=== PATIENT | female | born 1950 | race Hispanic/Latino ===

== ENCOUNTER 2022-03-12 10:11 | Emergency (ER) | payer OTHER ==
[2022-03-12 11:43] LABS: Urine Blood 2+ (Negative); Urine Glucose Negative (Negative); Urine Protein Negative (Negative); Urine Specific Gravity 1.015 (1.005-1.030)
[2022-03-12 12:18] LABS: Urine Bacteria None Seen /HPF (<20)
--- NOTE | 2022-03-12 12:39 | RAD REPORT ---
EXAM DESCRIPTION: RAD - Sacrum And Coccyx - 03/12/2022 12:20 pm CLINICAL HISTORY: PAIN COMPARISON: No comparisons FINDINGS/IMPRESSION: No acute fracture. No malalignment. Portions of the sacrum and coccyx are obscu red by bowel contents on the frontal view. If persistent clinical concern, could consider CT.
[2022-03-12] MEDS ORDERED: ACETAMINOPHEN 325 MG TABLET ONE (12:42)
--- NOTE | 2022-03-12 13:01 | EDPHYS ---
Physician Documentation [facility] Name: Yenny Rodriguez Age: 71 yrs Sex: Female : 1950 Arrival Date: 03/12/2022 Time: 10:13 Bed 11 Private MD: ED Physician Marely Booth HPI: 03/12 11:00 This 71 yrs old Female presents to ER via Ambulatory with complaints of Coccyx cp Pain. 11:00 The patient presents with pain that is acute, and tenderness. The symptoms are located cp in the coccyx area. 11:00 The pain does not radiate. The problem was sustained started after sitting on "seat cp belt". Onset: The symptoms/episode began/occurred today. Modifying factors: the patient symptoms are aggravated by sitting. Associated signs and symptoms: The patient has no apparent associated signs or symptoms. Severity of symptoms: in the emergency department the symptoms are unchanged, despite home interventions. Historical: - Allergies: 19:37 No Known Allergies; iw - Immunization history:: Adult Immunizations unknown. - Social history:: Smoking status: unknown. ROS: 11:05 Constitutional: Negative for body aches, chills, fever, poor PO intake. cp 11:05 Eyes: Negative for injury, pain, redness, and discharge. cp 11:05 Neck: Negative for pain with movement, pain at rest, stiffness. 11:05 Respiratory: Negative for cough, shortness of breath, wheezing. 11:05 Abdomen/GI: Negative for abdominal pain, nausea, vomiting, and diarrhea. 11:05 Back: Positive for pain at rest, of the sacrum. 11:05 : Negative for urinary symptoms, flank pain. 11:05 Skin: Negative for rash. 11:05 Neuro: Negative for headache, numbness, weakness. 11:05 All other systems are negative. Exam: 11:10 Constitutional: The patient appears in no acute distress, alert, awake, comfortable, cp non-toxic, well developed, well nourished. 11:10 Head/Face: Normocephalic, atraumatic. cp 11:10 Chest/axilla: Inspection: normal. 11:10 Cardiovascular: Rate: normal. 11:10 Respiratory: the patient does not display signs of respiratory distress, Respirations: normal, no use of accessory muscles, no retractions, labored breathing, is not present. 11:10 Abdomen/GI: Inspection: abdomen appears normal, Palpation: abdomen is soft and non-tender, in all quadrants. 11:10 Back: pain, that is mild, of the sacrum, ROM is normal, vertebral tenderness, is appreciated at sacrum and coccyx. 11:10 Skin: abscess, not appreciated, cellulitis, is not appreciated, no rash present. 11:10 Neuro: Motor: moves all fours, strength is normal, Sensation: is normal, Gait: is steady, at a normal pace, without difficulty. Vital Signs: 13:37 BP 135 / 84; Pulse 78; Resp 16; Temp 98.0; Pulse Ox 100% on R/A; iw MDM: 10:59 Patient medically screened. cp 13:00 Data reviewed: vital signs, nurses notes, radiologic studies, plain films. cp 13:00 Differential diagnosis: fracture, contusion, pilonidal cyst. Test interpretation: by ED cp physician or midlevel provider: plain radiologic studies. Counseling: I had a detailed discussion with the patient and/or guardian regarding: the historical points, exam findings, and any diagnostic results supporting the discharge/admit diagnosis, radiology results, to return to the emergency department if symptoms worsen or persist or if there are any questions or concerns that arise at home. Response to treatment: the patient's symptoms have mildly improved after treatment, and as a result, I will discharge patient. 03/12 10:55 Order name: Urine Microscopic Only; Complete Time: 12:45 cp 03/12 12:45 Interpretation: Normal except: URBC 5-10. 03/12 11:43 Order name: Urine Dipstick-Ancillary; Complete Time: 12:45 EDMS 03/12 12:45 Interpretation: Normal except: UBLD 2+. 03/12 10:55 Order name: XRAY Sacrum And Coccyx; Complete Time: 12:45 cp 03/12 12:45 Interpretation: Report reviewed. 03/12 10:55 Order name: Urine Dipstick-Ancillary (obtain specimen); Complete Time: 11:43 cp Administered Medications: 12:40 Drug: Tylenol 650 mg Route: PO; iw 13:00 Follow up: Response: No adverse reaction iw Disposition Summary: 03/12/22 13:00 Discharge Ordered Location: Home cp Problem: new cp Symptoms: have improved cp Condition: Stable cp Diagnosis - Low back pain cp Followup: cp - With: Private Physician - When: 2 - 3 days - Reason: Recheck today's complaints Discharge Instructions: - Discharge Summary Sheet cp - Acute Back Pain, Adult cp - Back Exercises cp Forms: - Medication Reconciliation Form cp - Thank You Letter cp - Antibiotic Education cp - Prescription Opioid Use cp Prescriptions: - Lidoderm 5 % Topical adhesive patch,medicated - apply 1 patch by TOPICAL route once daily; 10 patch; Refills: 0, Product cp Selection Permitted - Diclofenac Sodium 75 mg Oral Tablet Sustained Release - take 1 tablet by ORAL route 2 times per day; 30 tablet; Refills: 0, Product cp Selection Permitted Signatures: Dispatcher [employer] Yenny Hopkins RN RN Yandel Xiong PA PA cp
--- NOTE | 2022-03-12 13:01 | ER ---
Nurse's Notes [facility] Name: Yenny Rodriguez Age: 71 yrs Sex: Female : 1950 Arrival Date: 03/12/2022 Time: 10:13 Bed 11 Private MD: Diagnosis: Low back pain Presentation: 03/12 10:57 Chief complaint: Patient states: low back pain , is worried there might be a fracture. iw Coronavirus screen: At this time, the client does not indicate any symptoms associated with coronavirus-19. 10:57 Method Of Arrival: Ambulatory iw 10:57 Acuity: SG 4 iw 11:00 Ebola Screen: Patient negative for fever greater than or equal to 101.5 degrees iw Fahrenheit, and additional compatible Ebola Virus Disease symptoms Patient denies exposure to infectious person. Patient denies travel to an Ebola-affected area in the 21 days before illness onset. No symptoms or risks identified at this time. Initial Sepsis Screen: Does the patient meet any 2 criteria? No. Patient's initial sepsis screen is negative. Does the patient have a suspected source of infection? No. Patient's initial sepsis screen is negative. Risk Assessment: Do you want to hurt yourself or someone else? Patient reports no desire to harm self or others. Onset of symptoms was March 12, 2022. Triage Assessment: 11:00 General: Appears in no apparent distress. Behavior is calm. iw Historical: - Allergies: 19:37 No Known Allergies; iw - Immunization history:: Adult Immunizations unknown. - Social history:: Smoking status: unknown. Screenin:00 Abuse screen: Denies threats or abuse. Denies injuries from another. Nutritional iw screening: No deficits noted. Tuberculosis screening: No symptoms or risk factors identified. Fall Risk Fall in past 12 months (25 points). Assessment: 11:00 General: Appears in no apparent distress. Behavior is calm, cooperative. Pain: iw Complains of pain in back and buttocks. Neuro: Level of Consciousness is awake, alert, obeys commands, Oriented to person, place, time, situation, Moves all extremities. Full function. Vital Signs: 13:37 BP 135 / 84; Pulse 78; Resp 16; Temp 98.0; Pulse Ox 100% on R/A; iw ED Course: 10:13 Patient arrived in ED. as 10:54 Page, Yandel, PA is PHCP. cp 10:54 Marely Booth MD is Attending Physician. cp 10:57 Triage completed. iw 10:58 Yenny Euceda, RN is Primary Nurse. iw 11:00 Arm band placed on. iw 11:43 Urine Microscopic Only Sent. kc6 12:21 X-ray completed. Patient tolerated procedure well. Patient moved back from radiology. 1 12:22 XRAY Sacrum And Coccyx In Process Unspecified. EDMS 13:00 No provider procedures requiring assistance completed. Patient did not have IV access iw during this emergency room visit. Administered Medications: 12:40 Drug: Tylenol 650 mg Route: PO; iw 13:00 Follow up: Response: No adverse reaction iw Outcome: 13:00 Discharge ordered by MD. cp 13:35 Discharged to home ambulatory, with family. iw 13:35 Condition: good 13:35 Discharge instructions given to patient, Instructed on discharge instructions, follow up and referral plans. Demonstrated understanding of instructions, follow-up care. 13:37 Patient left the ED. iw Signatures: Dispatcher [employer] EDMS Luz Marina Vyas 1 Josee Urbano Irene, RN RN iw Yandel Yost PA PA cp Tammy Sagastume kc6
[2022-03-12 18:39] VITALS: BP 135/84; TEMP 98; O2SAT 100
== END 2022-03-12 13:37 | disposition home or self-care (01) ==
LOC: ER 10:11
DX: M54.50 Low back pain, unspecified (principal)
CPT/HCPCS: 72220; 81003; 81015; 99283

== ENCOUNTER 2024-05-11 20:02 | Emergency (ER) | payer SELFPAY ==
--- OUTSIDE RECORDS SUMMARY | 2024-05-11 20:04 | XMS REPORT | Continuity of Care Document ---
Author Name Unknown Address [address] [facility] [address] [place] [address] [facility] thconnect Address [address] [facility] [place] [address] Care Team Providers Care Aircraft Navigator Name Role Phone PCP, PATIENT DOES NOT HAVE A Primary Care Physic harrison Unavailable Aliyah Wyatt Attending Clinician ALIYAH UPTON Attending Clinician Unavailable Doctor Unassigned, [place] Attending Clinician U Milli Sharma NP Attending Clinician MILLI RAJPUT Attending Clinician Unavailable MILLI RAJPUT Admitting Clinician Unavailable Payers Payer Name Policy Type Policy Number Effective Date Expirati on Date Source MEDICARE OBS/INPT PART A ONLY [id number] 2012 00:00:00 Problems Condition Name Condition Details Condition Category Status Onset Date Resolution Date Last Treatment Date Treating Clinician Comments Source No known active problems No known active problems Disease General acute hospital Allergies, Adverse Reactions, Alerts Allergy Name Allergy Type Status Severity Reaction(s) Onset Date Inactive Date Treating Clinician Comments Source PENICILL IN DRUG INGREDI Active Swelling 03-20 00:00: 00 General acute hospital Penicill in Propensi ty to adverse reaction s Active Swelling 03-20 00:00: 00 General acute hospital Social History Social Habit Start Date Stop Date Quantity Comments Source Exposure to SARS-CoV-2 (event) 2022-04-08 00:00:00 2022-04-18 08:26:00 Not sure [facility] Sex Assigned At 1950 00:00:00 1950 00:00:00 [facility] Smoking Status Start Date Stop Date Source Tobacco smoking consumption unknown [facility] Medications Ordered Medication Name Filled Medication Name Start Date Stop Date Current Medication? Ordering Clinician Indication Dosage Frequency Signature (SIG) Comments Components Source diclofenac 75 mg EC tablet 04-18 00:00: 00 05-19 04:59 :00 No [id number] 75mg Take 1 tablet by mouth 2 (two) times daily with meals for 30 days. General acute hospital ketorolac 10 mg tablet 03-20 00:00: 00 04-18 00:00 :00 No [id number] 10mg Take 1 tablet by mouth every 6 (six) hours as needed for Pain (scale 1-3), Pain (scale 4-6) or Pain (scale 7-10). General acute hospital Vital Signs Vital Name Observation Time Observation Value Comments S ource Systolic blood pressure 2022-04-18 13:46:00 136 mm[Hg] [facility] Diastolic blood pressure 2022-04-18 13:46:00 78 mm[Hg] [facility] Heart rate 2022-04-18 13:46:00 80 /min [facility] Oxygen saturation in Arterial blood by Pulse oximetry 2022-04-18 13:46:00 95 /min [facility] Body height 2022-04-18 13:45:00 152.4 cm [facility] Body weight 2022-04-18 13:45:00 46.403 kg [facility] BMI 2022-04-18 13:45:00 19.98 kg/m2 [facility] Encounters Start Date/Time End Date/Time Encounter Type Admission Type Attending Clinicians Care Facility Care Department Encounter ID Source 2024-04-12 10:40:00 2024-04-12 10:40:[address] [facility] [id number] General acute hospital 2022-04-18 08:00:00 2022-04-18 09:22:53 Office Visit Aliyah Upton [facility] [id number] General acute hospital 2022-04-18 08:00:00 2022-04-18 08:00:00 [id number] 2022-04-18 00:00:00 2022-04-18 00:00:00 Orders Only Doctor Unassigned, [place] [facility] [id number] General acute hospital 2022-04-17 00:00:00 2022-04-17 00:00:00 [facility] [id number] General acute hospital 2022-03-20 09:49:00 2022-03-20 11:33:00 Emergency Milli Rajput [facility] [id number] General acute hospital 2022-03-20 09:49:00 2022-03-20 11:33:00 Emergency X MILLI RAJPUT [facility] ERT [id number] General acute hospital
[2024-05-11] MEDS ORDERED: ALBUTEROL 2.5 MG/3 ML NEB SOL ONE (20:40)
[2024-05-11] MEDS ORDERED: METHYLPREDNISOLONE 125 MG INJ ONE (20:40)
[2024-05-11] MEDS ORDERED: guaiFENesin 100 MG/5 ML UCUP ONE (20:41)
[2024-05-11] MEDS ORDERED: CODEINE 30MG/APAP 300MG TAB ONE (20:41)
[2024-05-11 21:04] LABS: Absolute Basophils 0.1 K/uL (0-0.5); Absolute Eosinophils 1.3 K/uL (0-0.5); Absolute Monocytes 0.5 K/uL (0.1-1.3); Absolute Neutrophil 2.9 K/uL (1.8-8.0); Basophils % 1.4 % (0-1.3); Eosinophils % 19.2 % (0-4.4); Hematocrit 36.7 % (36.0-45.0); Hemoglobin 12.4 g/dL (12.0-15.0); Lymphocytes % 29.2 % (15.3-44.8); MCH 30.9 pg (27.0-35.0); MCHC 33.9 g/dL (32.0-36.0); MPV 7.6 fL (7.6-11.3); Monocytes % 7.5 % (3.3-12.3); Neutrophils % 42.7 % (41.7-73.7); Nucleated Red Blood Cells % 0.1 % (0-0); Platelets 297 thou/uL (152-406); RBC Red Blood Cell Count 4.03 M/uL (3.86-4.86); Red Cell Distribution Width 12.9 % (12.1-15.2)
[2024-05-11 21:06] LABS: PT Prothrombin Time 11.6 SECONDS (9.4-12.5); Protime INR 1.04
[2024-05-11 21:14] LABS: SARS-CoV-2 Antigen CONTROL BLUE LINE VIS/BG OK; SARS-CoV-2 Antigen Rapid Res Negative (Negative)
--- NOTE | 2024-05-11 21:14 | RAD REPORT ---
EXAMINATION: ONE VIEW CHEST XR CLINICAL INDICATION: Female, 73 years old.,CHEST PAIN TECHNIQUE: Frontal chest projection is submitted. Examination is limited by patient positioning and t echnique. COMPARISON: 04/16/2024 FINDINGS: The lungs are well inflated and clear. No pneumothorax or sizable effusion. The heart is normal in s ize. IMPRESSION: No acute intrathoracic abnormalities.
[2024-05-11 21:26] LABS: ALT/SGPT 16 U/L (13-56); AST/SGOT 16 U/L (15-37); Albumin 3.4 g/dL (3.4-5.0); Albumin/Globulin Ratio 1.1 (1.1-1.8); Alkaline Phosphatase 47 U/L (45-117); BUN Blood Urea Nitrogen 16 mg/dL (7-18); Bicarbonate 28 mEq/L (21-32); Bilirubin Direct < 0.2 mg/dL (0-0.2); Bilirubin Indirect, Calculated 0.1 mg/dL (0.2-0.8); Bilirubin Total 0.3 mg/dL (0.2-1.0); Globulin 3.2 g/dL (2.3-3.5); Glomerular Filtration Rate 93 ml/min (=/>90); Glucose Level 131 mg/dL (74-106); Magnesium 2.1 mg/dL (1.6-2.4); NT PRO-BNP 49 pg/mL (<125); Protein, Total 6.6 g/dL (6.4-8.2); Sodium Level 135 mEq/L (136-145); Troponin High Sensitivity 14.1 pg/mL (<58.9)
[2024-05-11 21:34] LABS: Blood Morphology Comment NOT SEEN (NOT SEEN); Platelet Estimate ADEQ; White Blood Cell Scan OK (OK)
--- NOTE | 2024-05-11 22:34 | ER ---
Nurse's Notes [facility] Name: Loni Rodriguez Age: 73 yrs Sex: Female : 1950 Arrival Date: 05/11/2024 Time: 20:02 Bed 14 Private MD: Diagnosis: Cough variant asthma;Acute cough, acute pharyngitis, shortness of breath. Presentation: 05/11 20:30 Chief complaint: Patient states: PT STATES SHE HAS BEEN WHEEZING AND DRY COUGHING FOR br2 THE LAST 2 WEEKS. PT HAS BEEN USING INHALER AND NEB TREATMENT BUT IT ISN'T WORKING. DENIES N/V/F. Coronavirus screen: Client denies travel out of the [place] in the last 14 days. Ebola Screen: Patient negative for fever greater than or equal to 101.5 degrees Fahrenheit, and additional compatible Ebola Virus Disease symptoms Patient denies exposure to infectious person. Patient denies travel to an Ebola-affected area in the 21 days before illness onset. Onset: The symptoms/episode began/occurred 2 week(s) ago. Anaphylaxis evaluation, no signs or symptoms of anaphylaxis were noted. Anaphylaxis evaluation, no signs or symptoms of anaphylaxis were noted. Initial Sepsis Screen: Does the patient meet any 2 criteria? No. Patient's initial sepsis screen is negative. Does the patient have a suspected source of infection? No. Patient's initial sepsis screen is negative. Risk Assessment: Do you want to hurt yourself or someone else? Patient reports no desire to harm self or others. Onset of symptoms was April 27, 2024. 20:30 Method Of Arrival: Wheelchair br2 20:30 Acuity: SG 3 br2 Triage Assessment: 20:30 General: Appears in no apparent distress. comfortable, Behavior is calm. Pain: br2 Complains of pain in mid-sternal area Quality of pain is described as WHEEZING,TIGHTNESS. Historical: - PMHx: 20:56 Asthma; sp4 - Immunization history:: Adult Immunizations not up to date. - Social history:: Patient/guardian denies using alcohol, street drugs, IV drugs, caffeine, over the counter diet medications, tobacco products, Smoking status: . - Infectious Disease History:: Denies. - Family history:: not pertinent. Screenin:30 [facility] ED Fall Risk Assessment (Adult) History of falling in the last 3 months, br2 including since admission No falls in past 3 months (0 pts) Confusion or Disorientation No (0 pts) Intoxicated or Sedated No (0 pts) Impaired Gait No (0 pts) Mobility Assist Device Used No (0 pt) Altered Elimination No (0 pt) Score/Fall Risk Level 0 - 2 = Low Risk Oriented to surroundings, Maintained a safe environment. Abuse screen: Denies threats or abuse. Denies injuries from another. Nutritional screening: No deficits noted. Tuberculosis screening: No symptoms or risk factors identified. Assessment: 20:30 Respiratory: Reports pain with respiration WHEEZING, UNCOMFORTABLE Airway is patent br2 Respiratory effort is even, unlabored, Breath sounds with wheezes bilaterally. in left posterior upper lobe and right posterior upper lobe. 21:29 Reassessment: Patient is alert, oriented x 3, equal unlabored respirations, skin br2 warm/dry/pink. Patient states feeling better. Patient states symptoms have improved. 22:07 Reassessment: Patient and/or family updated on plan of care and expected duration. Pain br2 level reassessed. Patient is alert, oriented x 3, equal unlabored respirations, skin warm/dry/pink. Patient states feeling better. Patient states symptoms have improved. Vital Signs: 20:30 BP 152 / 77; Pulse 68; Resp 13 S; Temp 97.1; Pulse Ox 98% on R/A; Weight 53.07 kg; br2 Height 5 ft. 1 in. ; 20:47 BP 130 / 58 LA Supine; Pulse 78; Resp 17; Temp 98.9(O); Pulse Ox 100% on R/A; Weight oe 53.07 kg; Height 5 ft. 1 in. ; 21:28 BP 112 / 59; Pulse 77; Resp 18 S; Pulse Ox 95% on R/A; br2 22:24 BP 105 / 64; Pulse 61; Resp 18 S; Pulse Ox 100% on R/A; br2 20:47 Body Mass Index 22.11 (53.07 kg, 154.94 cm) oe ED Course: 20:06 Patient arrived in ED. jj6 20:09 Salo Rivas MD is Attending Physician. sp4 20:16 Dang Garcia RN is Primary Nurse. br2 20:30 Initial Neb Treatment Given as ordered. Inserted saline lock: 20 gauge in right br2 antecubital area, using aseptic technique. Blood collected. Flushed with 10 mL NS. 20:30 Arm band placed on right wrist. EKG completed in triage. Results shown to MD. br2 20:30 Patient has correct armband on for positive identification. Placed in gown. Bed in low br2 position. Call light in reach. Side rails up X 1. Adult w/ patient. Provided Education on: PLAN OF CARE. 20:37 XRAY Chest (1 view) In Process Unspecified. EDMS 20:40 EKG done, by ED staff, reviewed by Salo Rivas MD. oe 20:53 Influenza Screen (a \T\ B) Sent. br2 20:53 SARS RAPID Sent. br2 20:54 Basic Metabolic Panel Sent. br2 20:54 CBC with Diff Sent. br2 20:54 LFT's Sent. br2 20:54 Magnesium Sent. br2 20:54 NT PRO-BNP Sent. br2 20:54 PT-INR Sent. br2 20:54 Troponin HS Sent. br2 20:59 Triage completed. br2 22:34 Sukumar Rock DO is Referral Physician. sp4 22:35 IV discontinued, intact, bleeding controlled, No redness/swelling at site. Pressure br2 dressing applied. 22:45 No provider procedures requiring assistance completed. br2 Administered Medications: 20:53 Drug: MethylPrednisoLONE IVP 125 mg IVP once Route: IVP; Site: right antecubital; br2 21:30 Follow up: Response: No adverse reaction br2 20:53 Drug: Albuterol Inhalation 2.5 mg Inhalation once Route: Inhalation; br2 21:30 Follow up: Response: No adverse reaction br2 20:54 Drug: Acetaminophen-Codeine PO (300 mg-30 mg) 2 tabs PO once; RASS on ADMIN: Combtv4, br2 Very Agttd3, Agttd2, Rstlss1, AlertClm0, Drwsy-1, Lt Sdtn-2, Mod Sdtn-3, Dp Sdtn-4, UnArsble-5 Route: PO; 21:30 Follow up: Response: No adverse reaction br2 20:54 Drug: guaiFENesin PO Liquid 15 ml PO once Route: PO; br2 21:30 Follow up: Response: No adverse reaction; Pain is decreased br2 Medication: 22:45 VIS not applicable for this client. br2 Outcome: 22:34 Discharge ordered by . sp4 22:35 Discharged to home ambulatory, br2 22:35 Condition: improved 22:35 Discharge instructions given to patient, family, Instructed on discharge instructions, follow up and referral plans. medication usage, Demonstrated understanding of instructions, follow-up care, medications, Prescriptions given X 5 22:46 Patient left the ED. br2 Signatures: Dispatcher [employer] EDMS Forest Puckett Jennifer [email or web address] Salo Rivas MD MD sp4 Dang Garcia RN RN br2 Corrections: (The following items were deleted from the chart) 20:57 20:56 PMHx: Hypertensive disorder; sp4 sp4
--- NOTE | 2024-05-11 22:34 | EDPHYS ---
Physician Documentation [facility] Name: Loni Rodriguez Age: 73 yrs Sex: Female : 1950 Arrival Date: 05/11/2024 Time: 20:02 Bed 14 Private MD: ED Physician Salo Rivas HPI: 05/11 20:09 This 73 yrs old Female presents to ER via Unassigned with complaints of sp4 Allergy Symptoms, Shortness Of Breath. 20:56 Patient is a very pleasant 69-year-old female Ukrainian-speaking only presents with sp4 complaint of 2 weeks of nonproductive cough shortness of breath and overall discomfort. Historical: - PMHx: 20:56 Asthma; sp4 - Immunization history:: Adult Immunizations not up to date. - Social history:: Patient/guardian denies using alcohol, street drugs, IV drugs, caffeine, over the counter diet medications, tobacco products, Smoking status: . - Infectious Disease History:: Denies. - Family history:: not pertinent. ROS: 20:56 Constitutional: Negative for fever, chills, and weight loss, today for cough and sp4 dyspnea 20:56 All other systems are negative, Exam: 20:56 Constitutional: This is a well developed, well nourished patient who is awake, alert, sp4 and in no acute distress. Head/Face: Normocephalic, atraumatic. Eyes: Pupils equal round and reactive to light, extra-ocular motions intact. Lids and lashes normal. Conjunctiva and sclera are not injected. Cornea within normal limits. Periorbital areas with no swelling, redness, or edema. ENT: Nares patent. No nasal discharge, no septal abnormalities noted. Tympanic membranes are normal and external auditory canals are clear. Oropharynx with no redness, swelling, or masses, exudates, or evidence of obstruction, uvula midline. Mucous membranes moist. Neck: Trachea midline, no thyromegaly or masses palpated, and no cervical lymphadenopathy. Supple, full range of motion without nuchal rigidity, or vertebral point tenderness. Chest/axilla: Normal chest wall appearance and motion. Nontender with no deformity. No lesions are appreciated. Cardiovascular: Regular rate and rhythm with a normal S1 and S2. No gallops, murmurs, or rubs. Normal PMI, no JVD. No pulse deficits. Respiratory: Lungs have equal breath sounds bilaterally, clear to auscultation and percussion. No rales, rhonchi or wheezes noted. No increased work of breathing, no retractions or nasal flaring. Abdomen/GI: Soft, with normal bowel sounds. No distension or tympany. No guarding or rebound. No evidence of tenderness throughout. Back: No spinal tenderness. No costovertebral tenderness. Skin: Warm, dry with normal turgor. Normal color with no rashes, no lesions, and no evidence of cellulitis. MS/ Extremity: Pulses equal, no cyanosis. Neurovascular intact. Full, normal range of motion. Neuro: Awake and alert, GCS 15, oriented to person, place, time, and situation. Cranial nerves II-XII grossly intact. Motor strength 5/5 in all extremities. Sensory grossly intact. Psych: Awake, alert, with orientation to person, place and time. Behavior, mood, and affect are within normal limits 20:56 ECG was reviewed by the Attending Physician. EKG at 2035, normal sinus rhythm rate 75 Vital Signs: 20:30 BP 152 / 77; Pulse 68; Resp 13 S; Temp 97.1; Pulse Ox 98% on R/A; Weight 53.07 kg; br2 Height 5 ft. 1 in. ; 20:47 BP 130 / 58 LA Supine; Pulse 78; Resp 17; Temp 98.9(O); Pulse Ox 100% on R/A; Weight oe 53.07 kg; Height 5 ft. 1 in. ; 21:28 BP 112 / 59; Pulse 77; Resp 18 S; Pulse Ox 95% on R/A; br2 22:24 BP 105 / 64; Pulse 61; Resp 18 S; Pulse Ox 100% on R/A; br2 20:47 Body Mass Index 22.11 (53.07 kg, 154.94 cm) oe MDM: 20:16 Patient medically screened. sp4 22:28 ED course: EXAMINATION: ONE VIEW CHEST XR CLINICAL INDICATION: Female, 73 years sp4 old.,CHEST PAIN TECHNIQUE: Frontal chest projection is submitted. Examination is limited by patient positioning and technique. COMPARISON: 04/16/2024 FINDINGS: The lungs are well inflated and clear. No pneumothorax or sizable effusion. The heart is normal in size. IMPRESSION: No acute intrathoracic abnormalities. . 05/12 00:26 Differential diagnosis: Anxiety Reaction asthma, Bronchitis pneumonia, Psychogenic sp4 pulmonary edema. Data reviewed: vital signs, nurses notes, old medical records, lab test result(s), EKG, radiologic studies, plain films. ED course: Workup today unremarkable. Patient declined CAT scan. Stable for discharge home.. 05/11 20:11 Order name: Basic Metabolic Panel; Complete Time: 22:25 sp4 05/11 20:11 Order name: CBC with Diff; Complete Time: 22:25 sp4 05/11 20:11 Order name: LFT's; Complete Time: 22:25 sp4 05/11 20:11 Order name: Magnesium; Complete Time: 22:25 sp4 05/11 20:11 Order name: NT PRO-BNP; Complete Time: 22:25 4 05/11 20:11 Order name: PT-INR; Complete Time: 22:25 4 05/11 20:11 Order name: Troponin HS; Complete Time: 22:25 sp4 05/11 20:31 Order name: SARS RAPID; Complete Time: 22:25 sp4 05/11 20:31 Order name: Influenza Screen (a \T\ B); Complete Time: 22:25 sp4 05/11 21:34 Order name: CBC Smear Scan; Complete Time: 22:25 EDMS 05/11 20:11 Order name: XRAY Chest (1 view); Complete Time: 22:25 4 05/11 20:11 Order name: Cardiac monitoring; Complete Time: 20:27 sp4 05/11 20:11 Order name: EKG - Nurse/Tech; Complete Time: 20:40 sp4 05/11 20:11 Order name: IV Saline Lock; Complete Time: 20:54 sp4 05/11 20:11 Order name: Labs collected and sent; Complete Time: 20:54 sp4 05/11 20:11 Order name: O2 Per Protocol; Complete Time: 20:54 sp4 05/11 20:11 Order name: O2 Sat Monitoring; Complete Time: 20:54 sp4 EC/09 20:36 Rate is 75 beats/min. Rhythm is regular, Normal Sinus Rhythm. QRS [place] is Normal. IA sp4 interval is normal. QRS interval is normal. QT interval is normal. No Q waves. T waves are Normal. No ST changes noted. Clinical impression: No evidence of ischemia. Interpreted by me. Reviewed by me. Administered Medications: 20:53 Drug: MethylPrednisoLONE IVP 125 mg IVP once Route: IVP; Site: right antecubital; br2 21:30 Follow up: Response: No adverse reaction br2 20:53 Drug: Albuterol Inhalation 2.5 mg Inhalation once Route: Inhalation; br2 21:30 Follow up: Response: No adverse reaction br2 20:54 Drug: Acetaminophen-Codeine PO (300 mg-30 mg) 2 tabs PO once; RASS on ADMIN: Combtv4, br2 Very Agttd3, Agttd2, Rstlss1, AlertClm0, Drwsy-1, Lt Sdtn-2, Mod Sdtn-3, Dp Sdtn-4, UnArsble-5 Route: PO; 21:30 Follow up: Response: No adverse reaction br2 20:54 Drug: guaiFENesin PO Liquid 15 ml PO once Route: PO; br2 21:30 Follow up: Response: No adverse reaction; Pain is decreased br2 Disposition Summary: 05/11/24 22:34 Discharge Ordered Notes: Location: Home sp4 Problem: new sp4 Symptoms: have improved sp4 Condition: Stable sp4 Diagnosis - Cough variant asthma sp4 - Acute cough, acute pharyngitis, shortness of breath. sp4 Followup: sp4 - With: Sukumar Rock DO - When: 7 - 10 days - Reason: Recheck today's complaints Discharge Instructions: - Discharge Summary Sheet sp4 - Cough, Adult, [id number] sp4 Forms: - Patient Portal Instructions sp4 Prescriptions: - Ventolin HFA 90 mcg/actuation Inhalation HFA Aerosol Inhaler - inhale 2 puff INHALATION route every 4 hours PRN cough every 4 hours, Dispense sp4 with Spacer; 1 unit; Refills: 0, Product Selection Permitted - dextromethorphan-guaifenesin 60-1,200 mg Oral Tablet, Extended Release 12 hr - take 1 tablet ORAL route every 12 hours PRN cough; 40 tablet; Refills: 0, sp4 Product Selection Permitted - fluticasone furoate 100 mcg/actuation Inhalation Blister, With Inhalation Device - administer 2 inhalation INHALATION route every 24 hours for 30 days; 1 unit; sp4 Refills: 0, Product Selection Permitted - Zithromax Z-Howie 250 mg Oral Tablet - take 1 tablet ORAL route as directed for 5 days Day 1 - take two (2) tablets sp4 one time. Day 2, 3, 4 , 5 take one (1) tablet once daily.; 6 tablet; Refills: 0, Product Selection Permitted - Prednisone 20 mg Oral Tablet - take 2 tablets ORAL route once daily for 5 days; 10 tablet; Refills: 0, Product sp4 Selection Permitted Signatures: Dispatcher [employer] EDMS Salo Rivas MD MD sp4 Dang Garcia RN RN br2 Corrections: (The following items were deleted from the chart) 20:11 20:11 BASIC METABOLIC PANEL+C.LAB.BRZ ordered. EDMS EDMS 20:11 20:11 CBC+H.LAB.BRZ ordered. EDMS EDMS 20:11 20:11 HEPATIC FUNCTION+C.LAB.BRZ ordered. EDMS EDMS 20:11 20:11 MAGNESIUM+C.LAB.BRZ ordered. EDMS EDMS 20:11 20:11 PROBNP+C.LAB.BRZ ordered. EDMS EDMS 20:11 20:11 PROTIME (+INR)+COAG.LAB.BRZ ordered. EDMS EDMS 20:11 20:11 Troponin High Sensitivity+C.LAB.BRZ ordered. EDMS EDMS 20:12 20:12 Chest Single View+RAD.RAD.BRZ ordered. EDMS EDMS 20:54 20:54 Chest For PE Angio+CT.RAD.BRZ ordered. EDMS EDMS 20:57 20:56 PMHx: Hypertensive disorder; sp4 sp4
[2024-05-12 02:00] VITALS: TEMP 98.9
[2024-05-12 02:03] VITALS: BP 105/64; O2SAT 100
--- NOTE | 2024-05-12 16:53 | EKG ---
Test Date: 2024-05-11 Test Time: 20:36:23 Silk Screen Painter: HARJINDER MEASUREMENT RESULTS: Intervals: Rate: 75 TN: 144 QRSD: 68 QT: 370 QTc: 413 [place]: P: -9 TN: 144 QRS: -13 T: -12 INTERPRETIVE STATEMENTS: Normal sinus rhythm Voltage criteria for left ventricular hypertrophy Inferior infarct, age undetermined Abnormal ECG Compared to ECG 04/16/2024 21:15:13 Left ventricular hypertrophy now present Myocardial infarct finding now present Sinus tachycardia no longer present Electronically Signed On 05-12-24 16:50:12 CDT by Ethan Espinal
== END 2024-05-11 22:46 | disposition home or self-care (01) ==
LOC: ER 20:02
DX: J45.991 Cough variant asthma (principal); R06.02 Shortness of breath; J02.9 Acute pharyngitis, unspecified; Z11.52 Encounter for screening for COVID-19
CPT/HCPCS: 36415; 71045; 80048; 80076; 83735; 83880; 84484; 85025; 85610; 87804; 87811; 93005; J2919; J7613